=== PATIENT | female | born 1930 | race Caucasian/White ===

== ENCOUNTER 2017-02-08 13:07 | Emergency (ER) | payer MEDICARE ==
[~2017-02-08] VITALS: Ht 149.9 cm; Wt 47.6 kg
[2017-02-08 14:09] LABS: Basophils # (auto) 0.1 uL; Basophils % (auto) 0.5 % (0.0-2.0); Eosinophils # (auto) 0.4 uL; Eosinophils % (auto) 3.5 % (0.0-7.0); Hematocrit 32.5 % (36.0-46.0); Hemoglobin 10.9 g/dL (12.2-16.2); Lymphocytes # (auto) 2.5 uL; Lymphocytes % (auto) 22.5 % (10.0-50.0); Mean Corpuscular Hemoglobin 32.3 pg (28.0-32.0); Mean Corpuscular Hgb Conc. 33.6 g/dL (32.0-36.0); Mean Corpuscular Volume 96.2 fL (80.0-100.0); Mean Platelet Volume 7.2 fL (7.4-10.4); Monocytes # (auto) 0.9 uL; Monocytes % (auto) 8.3 % (0.0-12.0); Neutrophils # (auto) 7.2 uL; Neutrophils % (auto) 65.2 % (37.0-80.0); Platelet Count (auto) 509 10^3/uL (140-450); Red Cell Distribution Width 17.1 % (11.6-16.0)
[2017-02-08 14:35] LABS: Albumin 2.9 g/dL (3.4-5.0); BUN/Creatinine Ratio 16.9; Bilirubin, Total 0.3 mg/dL (0.2-1.0); Calcium 9.7 mg/dL (8.5-10.1); Magnesium 1.8 mg/dL (1.6-2.6); Potassium 3.8 mmol/L (3.5-5.1); Total Protein 7.2 g/dL (6.4-8.2)
[2017-02-08] MEDS ORDERED: SODIUM CHLORIDE 0.9% 1,000 ML IV ONE (15:26)
[2017-02-08] MEDS ORDERED: METOCLOPRAMIDE HCL 5MG/ml INJ 2ml VIAL IV ONE (15:30)
[2017-02-08] MEDS ORDERED: NALBUPHINE HCL 10 MG/1ml INJECTION IV ONE (15:30)
[2017-02-08 16:29] VITALS: BP 117/62
== END 2017-02-08 17:45 | disposition home or self-care (01) ==
LOC: ER 13:14
DX: L89.521 Pressure ulcer of left ankle, stage 1 (principal); L89.513 Pressure ulcer of right ankle, stage 3; E11.9 Type 2 diabetes mellitus without complications; E78.5 Hyperlipidemia, unspecified; I10 Essential (primary) hypertension; Z88.1 Allergy status to other antibiotic agents
CPT/HCPCS: 36415; 73630; 80053; 83735; 84484; 85025; 93005; 93971; 96361; 96374; 96375; 99285; J2300; J2765; J7030